=== PATIENT | female | born 1990 | race Caucasian/White ===

== ENCOUNTER 2018-10-31 06:03 | Day surgery (SDC) | payer OTHER ==
[2018-10-31] MEDS ORDERED: CEFAZOLIN SODIUM IN 0.9 % NACL 2 GM/100 ML BAG IV ONE (06:28)
[2018-10-31] MEDS ORDERED: fentaNYL 100 MCG/2 ML VIAL IVP ONE (07:00)
[2018-10-31] MEDS ORDERED: GLYCOPYRROLATE 1 MG/5 ML VIAL IVP ONE (07:00)
[2018-10-31] MEDS ORDERED: ROCURONIUM 50 MG/5 ML VIAL IVP ONE (07:00)
[2018-10-31] MEDS ORDERED: ACETAMINOPHEN 1,000 MG/100 ML 100 ML IV ONE (07:00)
[2018-10-31] MEDS ORDERED: PROPOFOL 200 MG/20 ML VIAL IVP ONE (07:00)
[2018-10-31] MEDS ORDERED: ONDANSETRON 4 MG/2 ML VIAL IVP ONE (07:00)
[2018-10-31] MEDS ORDERED: MIDAZOLAM 2 MG/2 ML VIAL IVP ONE (07:00)
[2018-10-31] MEDS ORDERED: DEXAMETHASONE 4 MG/ML VIAL IVP ONE (07:00)
[2018-10-31] MEDS ORDERED: KETOROLAC 30 MG/ML VIAL IVP ONE (07:00)
[2018-10-31] MEDS ORDERED: LIDOCAINE-MPF 2% 5 ML VIAL IM ONE (07:00)
[2018-10-31] MEDS ORDERED: NEOSTIGMINE 1 MG/1 ML 10 ML MDV IVP ONE (07:00)
--- NOTE | 2018-10-31 07:00 | ANESTHESIA ---
Pre-Anesthesia VS, & Labs - Diagnosis symptomatic cholelithiasis - Procedure lap yvonne Vital Signs: Temp Pulse Resp BP Pulse Ox 36.5 C 76 15 118/65 99 10/31/18 06:30 10/31/18 06:30 10/31/18 06:30 10/31/18 06:30 10/31/18 06:30 Height 4 ft 11 in Weight (kg) 86.6 kg - NPO >8 hours - Is Patient ?: No Home Medications and Allergies Home Medications: Ambulatory Orders Folic Acid 1 mg PO DAILY 10/18/18 Ibuprofen 600 mg PO Q6HR PRN 10/18/18 Levalbuterol HCl [Xopenex] 0.31 mg IH TID PRN 10/18/18 Multivitamin [Daily Multiple Vitamin] 1 each PO DAILY 10/18/18 levETIRAcetam [Levetiracetam ER] 1,500 mg PO DAILY PM 10/31/18 Cetirizine [ZyrTEC] 10 mg PO QPM 01/18/15 Levetiracetam [Keppra] 1,500 mg PO QPM 01/18/15 Ranitidine HCl [Zantac] 150 mg PO BID PRN 01/18/15 Folic Acid 1 mg PO DAILY 10/18/18 Ibuprofen 600 mg PO Q6HR PRN 10/18/18 Levalbuterol HCl [Xopenex] 0.31 mg IH TID PRN 10/18/18 Multivitamin [Daily Multiple Vitamin] 1 each PO DAILY 10/18/18 levETIRAcetam [Levetiracetam ER] 1,500 mg PO DAILY PM 10/31/18 Allergies/Adverse Reactions: Allergies Allergy/AdvReac Type Severity Reaction Status Date / Time diphenhydramine HCl * Allergy makes Verified 10/31/18 06:52 [From Benadryl] everything worse latex Allergy Hives Verified 10/31/18 06:52 melatonin Allergy "sets off Verified 10/31/18 06:52 epilepsy" HPV vaccine Allergy "sets off Uncoded 10/31/18 06:52 epilepsy" Anes History & Medical History - Anesthetic History Anesthesia Complications: reports: No previous complications - Medical History Cardiovascular: reports: None Pulmonary: reports: None Gastrointestinal: reports: GERD, Cholelithiasis Urinary: reports: None Neuro: reports: Seizure disorder (last seizure 10/27- tonic/clonic) Musculoskeletal: reports: None Endocrine/Autoimmune: reports: None Blood Disorders: reports: None Skin: reports: None Smoking Status: Never smoker Psychosocial: reports: Anxiety - Surgical History Eyes Ears Nose Throat (EENT): Tonsil/Adenoidectomy Exam General: Alert, Oriented x3, Cooperative, No acute distress Dental: WNL (chipped front) Mouth Openin Fingerbreadth Neck Mobility: Normal Mallampati classification: I Thyromental Distance: greater than 6 cm Respiratory: Lungs clear, Normal breath sounds, No respiratory distress, No accessory muscle use Cardiovascular: Regular rate, Normal S1, Normal S2, No murmurs Mental/Cognitive Status: Alert/Oriented X3, Normal for patient Plan Anesthesia Type: General Consent for Procedure(s) Verified and Reviewed: Yes Code Status: Attempt Resuscitation ASA classification: 2-Mild systemic disease Is this case an emergency?: No
[2018-10-31] MEDS ORDERED: BUPIVACAINE 0.5% PF 10 ML VIAL ONE (07:03)
[2018-10-31 07:10] LABS: HCG UR QUAL NEGATIVE
[2018-10-31] MEDS ORDERED: LACTATED RINGERS 1,000 ML IV ONE ×2 (07:18→09:40)
[2018-10-31] MEDS ORDERED: BUPIVACAINE 0.5% PF 30 ML VIAL SUBQ ONE (08:09)
--- NOTE | 2018-10-31 08:50 | OPERATIVE REPORT ---
Operative Report - General Procedure Date: 10/31/18 Planned Procedure: Laparoscopic cholecystectomy Pre-Op Diagnosis: Symptomatic cholelithiasis Procedure Performed: Laparoscopic cholecystectomy Umbilical herniorrhaphy Post Op Diagnosis: Symptomatic cholelithiasis and umbilical hernia - Procedure Note Primary Surgeon: Noah Kim MD Anesthesia Provider: Herlinda Crowley CRNA Anesthesia Technique: General ET tube, Local (30 mL of half percent Marcaine) IV Fluids (mL): 700 Estimated Blood Loss (mL): 5 Drain/Tube Type: Other (None.) Complications: None. - Other Other Information/Narrative: OPERATIVE DESCRIPTION/REPORT: After verbal and written informed consent was obtained detailing the risks of infection, bleeding requiring transfusion with its risks, common bile duct injury, and , and after I met with the patient confirming the surgery, the patient was brought to the operative suite and placed supine on the operating table. Great care was taken to avoid pressure points to prevent pressure necrosis or nerve injury. Monitoring devices were applied along with TEDs and pneumatic compressive stockings (to prevent DVT). The patient received preoperative antibiotics for surgical prophylaxis. [anesthesiologist] sedated and anethetized the patient for the entire procedure. The patient was prepped and draped in the usual sterile manner. A "time in" then confirmed that the patient was identified with 3 identifiers (name, date and medical record number), the history and physical was in the chart, the signed consent confirming the procedure was in the chart, the patient was in the correct position, the aforementioned prophylactic measures were in place or given, we had the correct personnel and equipment to complete the procedure and that anesthesia, surgery and nursing were given an opportunity to express any concerns. With the agreement of everyone in the room, we proceeded with the operation. The initial incision was at the umbilicus excising the previous piercing that we had discussed preoperativelyand dissection to a small umbilical hernia was completed using blunt dissection. The fascia on either side was grasped with a Omar the peritoneum was grasped and incised using Metzenbaum scissors. In this location, a 12 mm blunt tipped, balloon tipped port was placed and the balloon was inflated to keep the port in position. The abdominal cavity was insufflated with carbon dioxide to steady-state pressure of 15 mmHg. Three additional 5 mm ports were placed in standard location for laparoscopic cholecystectomy (subxiphoid and 2 right subcostal) under direct vision of the 30 degree laparoscope and without incident. The patient was then placed in reverse Trendelenburg position and was rotated slightly to their left. The gallbladder fundus was grasped with an atraumatic grasper. Multiple adhesions had to be taken down by blunt and sharp dissection along with electrocautery. Eventually, we identified the infundibulum, and this was then grasped and retracted inferior and laterally. Dissection was then begun in the angle of Calot. The cystic duct and (slightly medially and posteriorly) cystic artery were clearly identified. The critical view was obtained. Two clips proximally and one clip distally were used to control both the cystic duct and cystic artery. The clips were carefully placed to avoid occluding the juncture with the common bile duct. Both the cystic duct and then the cystic artery were then transected with laparoscopic indigo. The gallbladder was then removed from its fossa in a retrograde fashion using electrocautery. With the 30 degree 5 mm scope in the subxiphoid position, the gallbladder was placed in an EndoCatch bag to be extracted through the 12 mm port site. I irrigated the right upper quadrant with a liter of warm sterile saline, and the area was aspirated dry. I inspected the gallbladder fossa and there was no bleeding or bile leak. Clips on the cystic duct and cystic artery appeared to be secure. I briefly visually explored the abdomen. There was no other evidence of overt pathology. I injected the port sites at the peritoneal, fascial, and skin levels under direct vision with 0.5% Marcaine. All ports and the EndoCatch containing the gallbladder were removed. Following gallbladder removal, the remaining carbon dioxide was expelled from the abdomen. The fascia at the umbilicus was reapproximated using 2 [id number] 0 Vicryl sutures thus repairing the umbilical hernia. The subcutaneous tissues at the umbilicus were approximated using interrupted 2-0 Vicryl sutures. The skin at each port site was approximated using a subcuticular 4-0 Monocryl. The surgical count of instruments, needles and sponges was reported as correct twice. Mastisol, Steri-Strips and sterile surgical dressings were applied. The patient was then awakened from anesthesia, extubated, and having tolerated the procedure well, was transported to the recovery room. No complications were encountered. A "time out" confirmed the operation performed, the fluids given, the estimated blood loss and anesthesia, surgery and nursing were given an opportunity to express any concerns. Dragon disclaimer: This document was created in part using voice recognition technology. Because of the inherent limitations of the system ([employer]'s Dragon Dictate user manual states that the licensee understands that speech recognition is a statistical process and that recognition errors are inherent in the process), occasional same sounding word substitutions and grammatical errors do occur and persist despite proofreading. Please read this document for context.
[2018-10-31] MEDS ORDERED: ONDANSETRON 4 MG/2 ML VIAL IVP PRN (08:53)
[2018-10-31] MEDS ORDERED: HYDROcod/ACETAM 5/325 MG TABLET PO PRN (08:53)
[2018-10-31] MEDS ORDERED: HYDROmorphone 0.5 MG/0.5 ML SYRINGE IVP PRN (08:53)
[2018-10-31] MEDS: HYDROmorphone 1 MG/ML CARPUJECT ONE ×3 (09:00→09:20)
[2018-10-31 10:21] VITALS: BP 112/71
[2018-10-31] MEDS ORDERED: HYDROcod/ACETAM 5/325 MG TABLET ONE (10:23)
== END 2018-10-31 06:04 | disposition home or self-care (01) ==
LOC: SDS 06:03
PROVIDERS: ATTEND Surgery
PROC: 0FT44ZZ Resection of Gallbladder, Percutaneous Endoscopic Approach (ICD-10-PCS; principal; 2018-10-31 07:30)
DX: K81.1 Chronic cholecystitis (principal); K42.9 Umbilical hernia without obstruction or gangrene; J45.909 Unspecified asthma, uncomplicated; R56.9 Unspecified convulsions; K21.9 Gastro-esophageal reflux disease without esophagitis; F32.9 Major depressive disorder, single episode, unspecified; F41.0 Panic disorder [episodic paroxysmal anxiety]; E66.9 Obesity, unspecified; Z68.39 Body mass index [BMI] 39.0-39.9, adult; Z79.51 Long term (current) use of inhaled steroids; Z79.1 Long term (current) use of non-steroidal anti-inflammatories (NSAID)
CPT/HCPCS: 47562; 81025; A9270; J0131; J0690; J1170; J7120

== ENCOUNTER 2019-06-27 13:52 | Outpatient (CLI) | payer OTHER | END 2019-06-27 13:53 | disposition critical access hospital (66) | LOC: EMS 13:52 | PROVIDERS: ATTEND Surgery | DX: R51 Headache (principal); R11.0 Nausea; H53.8 Other visual disturbances | CPT/HCPCS: A0425; A0429 ==

== ENCOUNTER 2019-06-27 14:09 | Emergency (ER) | payer OTHER ==
[2019-06-27] MEDS ORDERED: levETIRAcetam 250 MG TABLET PO STA (15:27)
--- NOTE | 2019-06-27 15:32 | ED Physician Documentation ---
History of Present Illness - Stated complaint Stated Complaint: MED REFILL - Chief complaint Chief Complaint: Neuro - History obtained from History obtained from: Patient - History of Present Illness Timing: Today Pain level max: 0 Pain level now: 0 - Additonal information Additional information: 28-year-old female is out of her Keppra. She states that the pharmacies do not have the generic Keppra in stock and that turned down the prior authorization for brand Keppra. She has been out of her medication for the past 4 to 5 days. States she is feeling generally unwell. She is worried that she may have a seizure. No vomiting. No fevers. Nothing makes it better or worse. Review of Systems Ten Systems: 10 systems reviewed and negative Constitutional: denies: Fever, Chills Cardiac: denies: Chest pain / pressure Respiratory: denies: Cough GI: denies: Abdominal Pain, Nausea, Vomiting, Diarrhea : denies: Dysuria, Frequency, Hesitancy, Now EGA Skin: denies: Rash Musculoskeletal: denies: Neck pain, Back pain Neurologic: denies: Headache PD PAST MEDICAL HISTORY - Past Medical History Cardiovascular: None Respiratory: None Neuro: Seizure disorder (last seizure 10/27- tonic/clonic) Endocrine/Autoimmune: None GI: GERD, Cholelithiasis : None HEENT: None Psych: Anxiety, Panic attacks Musculoskeletal: None Derm: None - Past Surgical History Past Surgical History: No HEENT: Tonsil/Adenoidectomy - Present Medications Home Medications: Ambulatory Orders Medication Instructions Recorded Confirmed Cetirizine [ZyrTEC] 10 mg PO QPM 01/18/15 10/31/18 Levetiracetam [Keppra] 1,500 mg PO QPM 01/18/15 10/18/18 raNITIdine HCl [Zantac] 150 mg PO BID PRN 01/18/15 10/31/18 Folic Acid 1 mg PO DAILY 10/18/18 10/31/18 Ibuprofen 600 mg PO Q6HR PRN 10/18/18 10/31/18 Levalbuterol HCl [Xopenex] 0.31 mg IH TID PRN 10/18/18 10/18/18 Multivitamin [Daily Multiple 1 each PO DAILY 10/18/18 10/31/18 Vitamin] Docusate Sodium 250Mg Capsule 250 mg PO DAILY #10 capsule 10/31/18 [Colace 250Mg Capsule] HYDROcod/ACETAM 5/325 [[place] 5/325] 1 each PO Q4H #20 tablet 10/31/18 levETIRAcetam [Levetiracetam ER] 1,500 mg PO DAILY PM 10/31/18 10/31/18 Levetiracetam [Keppra Xr] 1,500 mg PO DAILY #90 tab.er.24h 06/27/19 - Allergies Allergies/Adverse Reactions: Allergies Allergy/AdvReac Type Severity Reaction Status Date / Time latex Allergy Severe Hives Verified 06/27/19 14:22 human papillomavirus AdvReac Severe "sets off Verified 06/27/19 14:22 vaccine, quadr epilepsy" [From Gardasil (PF)] melatonin AdvReac Severe "sets off Verified 06/27/19 14:22 epilepsy" diphenhydramine HCl * AdvReac Intermediate makes Verified 06/27/19 14:22 [From Benadryl] everything worse - Social History Does the pt smoke?: No Smoking Status: Never smoker Does the pt drink ETOH?: No Does the pt have substance abuse?: No - Immunizations Immunizations are current?: Yes PD ED PE NORMAL - Vitals Vital signs reviewed: Yes - General General: Alert and oriented X 3, No acute distress, Well developed/nourished - HEENT HEENT: PERRL, Moist mucous membranes - Neck Neck: Supple, no meningeal sign - Cardiac Cardiac: RRR - Respiratory Respiratory: No respiratory distress, Clear bilaterally - Abdomen Abdomen: Soft, Non tender, Non distended - Derm Derm: Warm and dry, No rash - Neuro Neuro: Alert and oriented X 3 - Psych Psych: Normal mood, Normal affect Results - Vitals Vitals: Vital Signs - 24 hr 06/27/19 06/27/19 14:23 15:49 Temperature 36.5 C 36.7 C Heart Rate 89 78 Respiratory 14 15 Rate Blood Pressure 133/87 H 128/76 O2 Saturation 97 99 Oxygen O2 Source Room air PD MEDICAL DECISION MAKING - ED course Complexity details: considered differential, d/w patient ED course: Patient's generic Keppra was refilled. They contacted [facility] pharmacy who has the generic 500 XR in stock, her prescription was rewritten for this. Patient was given 1000 mg of Keppra here. Patient counseled regarding signs and symptom s for which I believe and urgent re-evaluation would be necessary. Patient with good understanding of and agreement to plan and is comfortable going home at this time This document was made in part using voice recognition software. While efforts are made to proofread this document, sound alike and grammatical errors may occur. Departure - Departure Disposition: 01 Home, Self Care Clinical Impression: Medication refill Condition: Good Instructions: ED Screening Exam Medical Nonurgent Follow-Up: your,doctor in 1 week [Other] Prescriptions: Levetiracetam [Keppra Xr] 1,500 mg PO DAILY #90 tab.er.24h Comments: Use the Keppra as prescribed. Return if you worsen. Follow-up with your doctor for further care.
[2019-06-27 15:49] VITALS: BP 128/76
== END 2019-06-27 15:51 | disposition home or self-care (01) ==
LOC: EDUNIT# → ED 14:09
DX: G40.909 Epilepsy, unspecified, not intractable, without status epilepticus (principal); Z76.0 Encounter for issue of repeat prescription
CPT/HCPCS: 99283; 99284; A9270

== ENCOUNTER 2019-07-11 19:45 | Emergency (ER) | payer OTHER ==
--- NOTE | 2019-07-11 20:04 | ED Physician Documentation ---
PD HPI SEIZURE - Stated complaint Stated Complaint: SEIZURES - Chief complaint Chief Complaint: Neuro - History obtained from History obtained from: Patient, Family (The patient is a 28 Y/O F who presents with her with a cc of seizures, she has a known history of seizures and was seen by her neurologist yesterday in [place]. Her states that she just had her keppra increased to 1500 mg bid. he describes her seizure activity as twitching like.) - History of Present Illness Witnessed: Witnessed Number of seizures: Single, Lasted - seconds Description of seizure activity: Postictal Injury during seizure: No: Fell, Head injury, Neck injury, Bit tongue, Shoulder dislocation Review of Systems Constitutional: denies: Fever Eyes: denies: Loss of vision, Decreased vision Ears: denies: Loss of hearing, Ear pain Nose: reports: Reviewed and negative Throat: reports: Reviewed and negative Cardiac: reports: Reviewed and negative Respiratory: reports: Reviewed and negative GI: reports: Reviewed and negative : reports: Reviewed and negative Skin: reports: Reviewed and negative Musculoskeletal: reports: Reviewed and negative Neurologic: reports: Seizure. denies: Headache, Head injury, LOC Psychiatric: reports: Reviewed and negative Endocrine: reports: Reviewed and negative Immunocompromised: reports: Reviewed and negative PD PAST MEDICAL HISTORY - Past Medical History Past Medical History: Yes Cardiovascular: None Respiratory: None Neuro: Seizure disorder Endocrine/Autoimmune: None GI: GERD, Cholelithiasis : None HEENT: None Psych: Anxiety, Panic attacks Musculoskeletal: None Derm: None - Past Surgical History Past Surgical History: No HEENT: Tonsil/Adenoidectomy - Present Medications Home Medications: Ambulatory Orders Medication Instructions Recorded Confirmed Cetirizine [ZyrTEC] 10 mg PO QPM 01/18/15 10/31/18 Levetiracetam [Keppra] 1,500 mg PO QPM 01/18/15 10/18/18 raNITIdine HCl [Zantac] 150 mg PO BID PRN 01/18/15 10/31/18 Folic Acid 1 mg PO DAILY 10/18/18 10/31/18 Ibuprofen 600 mg PO Q6HR PRN 10/18/18 10/31/18 Levalbuterol HCl [Xopenex] 0.31 mg IH TID PRN 10/18/18 10/18/18 Multivitamin [Daily Multiple 1 each PO DAILY 10/18/18 10/31/18 Vitamin] Docusate Sodium 250Mg Capsule 250 mg PO DAILY #10 capsule 10/31/18 [Colace 250Mg Capsule] HYDROcod/ACETAM 5/325 [[place] 5/325] 1 each PO Q4H #20 tablet 10/31/18 levETIRAcetam [Levetiracetam ER] 1,500 mg PO DAILY PM 10/31/18 10/31/18 Levetiracetam [Keppra Xr] 1,500 mg PO DAILY #90 tab.er.24h 06/27/19 LORazepam [Ativan] 0.5 mg PO Q12H PRN #5 tablet 07/11/19 - Allergies Allergies/Adverse Reactions: Allergies Allergy/AdvReac Type Severity Reaction Status Date / Time latex Allergy Severe Hives Verified 07/11/19 19:52 human papillomavirus AdvReac Severe "sets off Verified 07/11/19 19:52 vaccine, quadr epilepsy" [From Gardasil (PF)] melatonin AdvReac Severe "sets off Verified 07/11/19 19:52 epilepsy" diphenhydramine HCl * AdvReac Intermediate makes Verified 07/11/19 19:52 [From Benadryl] everything worse - Social History Does the pt smoke?: No Smoking Status: Never smoker Does the pt drink ETOH?: No Does the pt have substance abuse?: No - Immunizations Immunizations are current?: Yes - POLST Patient has POLST: No PD ED PE NORMAL - Vitals Vital signs reviewed: Yes - General General: Alert and oriented X 3, No acute distress, Well developed/nourished - HEENT HEENT: Atraumatic, PERRL, EOMI, Ears normal, Moist mucous membranes, Pharynx benign, Dentition benign - Neck Neck: Supple, no meningeal sign - Cardiac Cardiac: RRR, No murmur, Strong equal pulses - Respiratory Respiratory: No respiratory distress, Clear bilaterally - Abdomen Abdomen: Normal bowel sounds, Soft, Non tender, Non distended, No organomegaly - Back Back: No spinal TTP - Derm Derm: Normal color, Warm and dry, No rash - Extremities Extremities: No deformity - Neuro Neuro: Alert and oriented X 3, 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, No motor deficit, No sensory deficit, Normal speech, Other (post ictal) - Psych Psych: Normal mood, Normal affect Results - Vitals Vitals: Vital Signs - 24 hr 07/11/19 07/11/19 07/11/19 19:48 19:51 22:04 Temperature 36.7 C 36.7 C Heart Rate 77 77 77 Respiratory 17 17 18 Rate Blood Pressure 118/85 H 118/85 H 125/78 O2 Saturation 99 99 98 Oxygen O2 Source Room air - Labs Labs: Laboratory Tests 07/11/19 07/11/19 07/11/19 20:30 20:30 20:30 WBC 12.6 H RBC 4.87 Hgb 14.1 Hct 41.7 MCV 85.6 MCH 29.0 MCHC 33.8 RDW 13.3 Plt Count 309 MPV 10.0 Neut # (Auto) 7.6 H Lymph # (Auto) 4.0 H [place] # (Auto) 0.8 Eos # (Auto) 0.1 Baso # (Auto) 0.1 Absolute Nucleated RBC 0.00 Nucleated RBC % 0.0 Sodium 140 Potassium 3.7 Chloride 104 Carbon Dioxide 22 Anion Gap 14.0 H BUN 12 Creatinine 0.6 Estimated GFR (MDRD) 119 Glucose 91 POC Whole Bld Glucose Lactic Acid 1.2 Calcium 9.6 Total Creatine Kinase 92 TSH Urine Color Urine Clarity Urine pH Ur Specific [place] Urine Protein Urine Glucose (UA) Urine Ketones Urine Occult Blood Urine Nitrite Urine Bilirubin Urine Urobilinogen Ur Leukocyte Esterase Ur Microscopic Review Urine Culture Comments Urine HCG, Qual Salicylates < 6.0 Urine Opiates Screen Ur Oxycodone Screen Urine Methadone Screen Ur Propoxyphene Screen Acetaminophen < 10 L Ur Barbiturates Screen Ur Tricyclics Screen Ur Phencyclidine Scrn Ur Amphetamine Screen U Methamphetamines Scrn U Benzodiazepines Scrn Urine Cocaine Screen U Cannabinoids Screen Ethyl Alcohol < 5.0 07/11/19 07/11/19 07/11/19 20:30 20:48 21:40 WBC RBC Hgb Hct MCV MCH MCHC RDW Plt Count MPV Neut # (Auto) Lymph # (Auto) [place] # (Auto) Eos # (Auto) Baso # (Auto) Absolute Nucleated RBC Nucleated RBC % Sodium Potassium Chloride Carbon Dioxide Anion Gap BUN Creatinine Estimated GFR (MDRD) Glucose POC Whole Bld Glucose 72 Lactic Acid Calcium Total Creatine Kinase TSH 1.29 Urine Color YELLOW Urine Clarity CLEAR Urine pH 6.0 Ur Specific [place] 1.010 Urine Protein NEGATIVE Urine Glucose (UA) NEGATIVE Urine Ketones 40 H Urine Occult Blood TRACE-INTA Urine Nitrite NEGATIVE Urine Bilirubin NEGATIVE Urine Urobilinogen 0.2 (NORMAL) Ur Leukocyte Esterase NEGATIVE Ur Microscopic Review NOT INDICATED Urine Culture Comments NOT INDICATED Urine HCG, Qual NEGATIVE Salicylates Urine Opiates Screen NEGATIVE Ur Oxycodone Screen NEGATIVE Urine Methadone Screen NEGATIVE Ur Propoxyphene Screen NEGATIVE Acetaminophen Ur Barbiturates Screen NEGATIVE Ur Tricyclics Screen NEGATIVE Ur Phencyclidine Scrn NEGATIVE Ur Amphetamine Screen NEGATIVE U Methamphetamines Scrn NEGATIVE U Benzodiazepines Scrn NEGATIVE Urine Cocaine Screen NEGATIVE U Cannabinoids Screen NEGATIVE Ethyl Alcohol PD MEDICAL DECISION MAKING - ED course Complexity details: re-evaluated patient (AAO X 3, well appearing tolerated po challenge, steady gait, clear speech. will dc home with close f/u. ), other (patient presents with her with known seizures on keppra. will check electrolytes and cbc, patient has had a recent CT scan at outside facility as well as recent eeg, is established with neurologist. she is having some clonic like activities currently will treat with ativan and send labs and observe.) Departure - Departure Disposition: 01 Home, Self Care Clinical Impression: Seizure Condition: Good Instructions: ED Seizure Recurrent Follow-Up: ENDY WILEY MD [Primary Care Provider] - Tomorrow Prescriptions: LORazepam [Ativan] 0.5 mg PO Q12H PRN #5 tablet PRN Reason: Seizure
[2019-07-11] MEDS ORDERED: LORazepam 2 MG/ML VIAL IVP STA (20:11)
[2019-07-11] MEDS ORDERED: SODIUM CHLORIDE 0.9% 1,000 ML IV ONE (20:11)
[2019-07-11 20:35] LABS: BASOPHILS # (AUTO) 0.1 10^3/uL (0.0-0.1); BASOPHILS % (AUTO) 0.5 %; EOSINOPHILS # (AUTO) 0.1 10^3/uL (0.0-0.7); HGB - HEMOGLOBIN 14.1 g/dL (12.0-16.0); LYMPHOCYTES % (AUTO) 31.8 %; MEAN CORPUSCULAR HGB CONC 33.8 g/dL (32.0-36.0); MEAN CORPUSCULAR VOLUME 85.6 fL (81.0-99.0); MONOCYTES # (AUTO) 0.8 10^3/uL (0.0-1.0); MONOCYTES % (AUTO) 6.1 %; NEUTROPHILS # (AUTO) 7.6 10^3/uL (1.5-6.6); NEUTROPHILS % (AUTO) 60.1 %; PLT - PLATELET COUNT 309 10^3/uL (130-450); RED BLOOD COUNT 4.87 10^6/uL (4.20-5.40); RED CELL DISTRIBUTION WIDTH 13.3 % (12.0-15.0); WHITE BLOOD COUNT 12.6 x10^3/uL (4.8-10.8)
[2019-07-11 20:52] LABS: ACETAMINOPHEN < 10 ug/mL (10-30); BUN - BLOOD UREA NITROGEN 12 mg/dL (6-20); CALCIUM 9.6 mg/dL (8.5-10.3); CARBON DIOXIDE - CO2 22 mmol/L (21-32); CHLORIDE 104 mmol/L (101-111); CK- CREATINE KINASE 92 IU/L (22-269); CREATININE 0.6 mg/dL (0.4-1.0); GFR - MDRD 119 (>89); GLUCOSE 91 mg/dL (70-100); SALICYLATE < 6.0 mg/dL; SODIUM 140 mmol/L (135-145)
[2019-07-11 22:03] LABS: MUDS CUTOFF CONCENTRATIONS CUTOFF CONC BELOW:
[2019-07-11 22:04] VITALS: BP 125/78
[2019-07-11 22:09] LABS: BILIRUBIN,URINE NEGATIVE (NEGATIVE); GLUCOSE, URINE (UA) NEGATIVE (NEGATIVE); KETONES,URINE (UA) 40 mg/dL (NEGATIVE); LEUKOCYTE ESTERASE, URINE NEGATIVE (NEGATIVE); NITRITE,URINE NEGATIVE (NEGATIVE); OCCULT BLOOD,URINE TRACE-INTA (NEGATIVE); PROTEIN,URINE NEGATIVE (NEGATIVE); UROBILINOGEN,URINE 0.2 (NORMAL) E.U./dL (NORMAL)
[2019-07-11 22:12] LABS: CLARITY,URINE CLEAR (CLEAR); HCG UR QUAL NEGATIVE
[2019-07-11 22:19] LABS: COCAINE SCREEN URINE NEGATIVE (NEGATIVE); METHAMPHETAMINES SCREEN, URINE NEGATIVE (NEGATIVE)
[2019-07-11 22:20] LABS: AMPHETAMINE SCREEN,URINE NEGATIVE (NEGATIVE); BENZODIAZEPINES SCREEN, URINE NEGATIVE (NEGATIVE); METHADONE SCREEN, URINE NEGATIVE (NEGATIVE); OPIATE SCREEN, URINE NEGATIVE (NEGATIVE); OXYCODONE SCREEN, URINE NEGATIVE (NEGATIVE); PROPOXYPHENE SCREEN, URINE NEGATIVE (NEGATIVE); TRICYCLIC ANTIDEPRESSANT,URINE NEGATIVE (NEGATIVE)
== END 2019-07-11 22:44 | disposition home or self-care (01) ==
LOC: ED 19:45
DX: G40.909 Epilepsy, unspecified, not intractable, without status epilepticus (principal)
CPT/HCPCS: 36415; 80048; 80320; 80329; 81003; 81025; 82550; 83605; 84443; 85025; 96361; 96374; 99283; 99284; J2060; 80306; 80307; 81001; 87086

== ENCOUNTER 2019-11-27 18:15 | Outpatient (CLI) | payer OTHER | END 2019-11-27 18:16 | disposition EMS.NT | LOC: EMS 18:15 | PROVIDERS: ATTEND Surgery | DX: R42 Dizziness and giddiness (principal) ==

== ENCOUNTER 2023-02-08 09:30 | Outpatient (CLI) | payer OTHER | END 2023-02-08 09:45 | disposition home or self-care (01) | LOC: LAB.N 09:30 | PROVIDERS: ATTEND Registered Nurse | DX: J02.9 Acute pharyngitis, unspecified (principal) | CPT/HCPCS: 87070 ==

== ENCOUNTER 2023-10-24 11:52 | Outpatient (CLI) | payer OTHER ==
--- NOTE | 2023-10-24 17:39 | XRAY Report ---
PROCEDURE: Chest 2V INDICATIONS: ACUTE UPPER RESPIRATORY INFECTION TECHNIQUE: 2 views of the chest were acquired. COMPARISON: None. FINDINGS: Surgical changes and devices: None. Lungs and pleura: Mild increased scattered opacities in the left base. Mediastinum: Mediastinal contours appear normal. Heart size is normal. Bones and chest wall: No suspicious bony lesions. Overlying soft tissues appear unremarkable. IMPRESSION: Mild increased left basilar scattered opacity suspicious for pneumonia. Reviewed by: Nasreen Emanuel MD on 10/24/2023 5:38 PM PDT Approved by: Nasreen Emanuel MD on 10/24/2023 5:38 PM PDT Station ID: [id number]
== END 2023-10-24 11:53 | disposition home or self-care (01) ==
LOC: DI.N 11:52
PROVIDERS: ATTEND Nurse Practitioner
DX: R91.8 Other nonspecific abnormal finding of lung field (principal); J06.9 Acute upper respiratory infection, unspecified

== ENCOUNTER 2023-11-18 13:40 | Outpatient (CLI) | payer OTHER | END 2023-11-18 13:41 | disposition home or self-care (01) | LOC: LAB 13:40 | PROVIDERS: ATTEND Family Medicine | DX: O09.299 Supervision of pregnancy with other poor reproductive or obstetric history, unspecified trimester (principal) | CPT/HCPCS: 36415; 84702 ==